=== PATIENT | female | born 1995 | race Caucasian/White ===

== ENCOUNTER → 2017-12-17 08:35 | Outpatient (CLI) | payer OTHER, SELFPAY ==
--- NOTE | 2017-12-17 08:38 | MR_ITS ---
MR ankle RT wo/w con Ordering Physician: Sade Galeana DPM Patient Age: 22 years: Female HISTORY: ITS.REASON: ankle pain Sprain ankle swelling about the entire ankle symptoms 3 weeks lateral ankle pain pain with abduction. TECHNIQUE: Pre and postcontrast imaging 1.5 to MR Multiplanar multisequence imaging precontrast Postcontrast imaging T1 fat suppression following 19 mL ProHance. Diffuse COMPARISON :Right ankle 11/26/2017 FINDINGS Suspect minimal focal tear ATFL , partial avulsion at its fibular attachment.Axial slice 10. This feature suggest likely grade 3 or near grade 3 ankle sprain . Also note thickened appearance of anterior talofibular fibular ligament imaging,reflecting recent injury and/or prior injury. Suggestion edema throughout insertion I believe of both the calcaneal fibular and anterior talofibular is ligamen on coronal image 21, 22 also reflecting this ankle sprain injury. . Postcontrast images show enhancement most pronounced throughout this region anterior to the tip of the lateral malleolus, in the region and in this region of the ATFL, calcaneofibular ligament & soft tissues anterior to the tip of the lateral malleolus The anterior inferior tibiofibular ligament appears intact as seen on axialslice 7although there may be some minor edema along its inferior aspect. Axial/7 Coronal slice 20. Possible minor sprain Posterior tibiofibular ligaments appear intact.. . Moderate Ankle joint effusion. Fluid and edema most evident at lateral. Moderate joint fluid extending extending posterior and surrounds the FHL.. . . Also note scant increased edema & fluid along the posterior as well as lateral aspect the subtalar joint.. . Minimal bone contusions evident.: Most notable is the bone contusion along the lateral the distal tibia interosseous region, & just above the ankle mortise,.. Axial image 5. Coronal slice 22. No definitive widening of the interosseous region. There is some minimal fluid tracking this region.. On slice 1. I believe intact interosseous ligament is identified Very subtle contusion beneath lateral dome of talus- just inferior to the area discussed above. Coronal image 21. No fracture line evident at either the above areas . Questionable small focus of bone contusion along medial neck of talus. Sagittal slice 15, coronal slice 17 axial 10.. Medial malleolus however is intact with no fracture or contusion. There is some edema throughout soft tissues of posterior to the medial malleolus q Peroneus tendons overall intact, with no definitive tear. There is some upper normal interstitial signal centrally within peroneus brevis tendon sagittal image 6, just below the tip of the lateral malleolus... However I cannot confirm this on axial images & thus may merely be magic angle artifact signal.. . Posterior tibialis tendon intact. No tear. There is scant fluid tracking along these above tendon sheaths. Metatarsals and specifically base of fifth metatarsal intact. IMPRESSION: 1. . Suspect tear, partial avulsion at the fibular insertion of ATFL ligament.... Of this ligament also appears to be thickened reflecting injury and/or prior injuries . 2.. Minimal Bone contusion the lung lateral aspect distal tibia, at interosseous region. No significant widening of the interosseous region felt to be present but there is scant fluid here . Posterior & Anterior talofibular ligament intact, with only question of possible minor sprain of the AiTFL Associated very subtle bone contusion at the lateral dome of talus,. Also question small bone contusion suspect at the medial neck of talus 3.Joint effusion.. 4. Soft tissue edema & swelling about ankle. Most evident about the tip of lateral malleolus postcon
== END ==
PROVIDERS: Family Provider Nurse Practitioner Family; PCP Nurse Practitioner Family; Visit Provider Podiatrist
DX: M25.571 Pain in right ankle and joints of right foot (principal); S93.401A Sprain of unspecified ligament of right ankle, initial encounter; S93.421A Sprain of deltoid ligament of right ankle, initial encounter; S93.431A Sprain of tibiofibular ligament of right ankle, initial encounter
CPT/HCPCS: 73723; A9576

== ENCOUNTER 2018-02-11 08:30 | Outpatient (RCR) | payer OTHER, SELFPAY ==
--- NOTE | 2018-01-23 09:39 | HMH.PTOPEV ---
PT Outpatient Evaluation Rehab PT Outpatient Evaluation Start: 01/23/18 09:27 Freq: Status: Active Protocol: Document 01/23/18 09:27 ARLEY (Rec: 01/23/18 09:38 ARLEY [id number]) Electronically Signed By Emmanuel Mercer, PT 01/23/18 09:27 Outpatient Therapy Subjective History Subjective History Pt is a 22 year old female presenting to outpatient PT with reports of R ankle pain S /P R inversion ankle sprain on 12/10/17 after a fall in which she stepped in a hole. Pt reports hx of R foot plantar fasciitis. Most recently had an injection for plantar fasciitis that has provided some significant relief. She was also referred for peroneal tendonitis. She presented to PT in R ankle corsett ankle brace. She reports wearing CAM walker while at work. No significant comorbidites to report. Chief Complaint Pain Stiff Swelling Gives out/Unstable Symptom Type Ache Dull Symptoms Relieved By Rest/Positioning Ice OTC Meds Symptoms Aggravated By Standing Physical Activity Walking Prior Functional Limitations None Current Functional Limitations Standing Squatting Recreation Activity Walking Stairs Balance Symptom Description Intermittent Level of pain today (0-10) 4 Pain scale - at its best (0-10) 0 Pain scale - at its worst (0-10) 6 Ankle/Foot Eval Gait Observation General Gait Pattern Observation Antalgic Gait Palpation Tenderness right Ankle/Foot Palpation Findings Tenderness Ankle/Foot Palpation Overall Comment Achilles tendon ATF TTP positive ROM Ankle/Foot Dorsiflexion w/Knee Extended -10 Active Range Motion (degrees) Ankle/Foot Dorsiflexion w/Knee Extended -5 Passive Range (degrees) Ankle/Foot Plantar Flexion Active Range 60 of Motion (degrees) Ankle/Foot Eversion Active Range of 25 Motion (degrees) An
== END 2018-02-11 08:35 | disposition home or self-care (01) ==
LOC: PT 08:30
PROVIDERS: Family Provider Nurse Practitioner Family; PCP Nurse Practitioner Family; Visit Provider Podiatrist
DX: S93.491D Sprain of other ligament of right ankle, subsequent encounter (principal); M72.2 Plantar fascial fibromatosis; M76.71 Peroneal tendinitis, right leg; M25.571 Pain in right ankle and joints of right foot; G89.29 Other chronic pain
CPT/HCPCS: 97110; 97112; 97163

== ENCOUNTER → 2018-02-26 17:47 | Outpatient (CLI) | payer OTHER, SELFPAY ==
[2018-02-26 18:53] LABS: Basophils % 0.4 % (0.1-2.0); Eosinophils # 0.1 K/mm3 (0.0-0.4); Eosinophils % 1.3 % (0.1-12.0); Hemoglobin 14.6 g/dL (12.2-16.2); Lymphocytes # 1.9 K/mm3 (0.7-4.5); Lymphocytes % 26.8 % (10-50); Mean Corpuscular HGB Conc 32.4 g/dL (31.8-35.4); Mean Corpuscular Hemoglobin 26.8 pg (27.0-31.2); Mean Corpuscular Volume 82.8 fl (81-99); Mean Platelet Volume 8.5 fl (7.4-10.4); Monocytes # 0.4 K/mm3 (0.1-1.0); Monocytes % 6.1 % (1.7-9.3); Neutrophils # 4.8 K/mm3 (1.8-7.8); Neutrophils % 65.4 % (37.0-80.0); Platelet Count 432 K/mm3 (142-424); Red Blood Count 5.43 M/mm3 (4.20-5.40); Red Cell Distribution Width 12.7 % (11.5-17.5); White Blood Count 7.3 K/mm3 (4.8-10.8)
[2018-02-26 19:45] LABS: Amphetamine/Metha Screen,Urine Negative ng/mL (<1000); Barbiturates Screen,Urine Negative ng/mL (<200); Benzodiazepines Screen,Urine Negative ng/mL (<200); Cannabinoid Screen,Urine Positive ng/mL (<50); Cocaine Screen,Urine Negative ng/mL (<300); Methadone Screen,Urine Negative ng/mL (<300); Opiate Screen,Urine Negative ng/mL (<300); Phencyclidine Screen,Urine Negative ng/mL (<25)
[2018-02-26 19:55] LABS: Alanine Aminotransferase 26 U/L (12-78); Albumin Level 4.1 gm/dL (3.4-5.0); Albumin/Globulin Ratio 1.1 (1.1-1.8); Alkaline Phosphatase 71 U/L (46-116); Anion Gap 16.1 mEq/L (5-15); Aspartate Amino Transferase 11 U/L (15-37); Bilirubin,Total 0.3 mg/dL (0.2-1.0); Blood Urea Nitrogen 12 mg/dL (7-18); Calcium 9.2 mg/dL (8.5-10.1); Carbon Dioxide 25 mmol/L (21.0-32.0); Chloride 103 mmol/L (98-107); Cholesterol 170 mg/dL (140-200); Creatinine,Serum 0.87 mg/dL (0.55-1.02); Estimated Glomerular Filt Rate 81 ml/min (>60); GFR (African American) 99 ML/MIN (>60); Globulin 3.6 gm/dl (1.3-3.2); Potassium 4.1 mmoL/L (3.5-5.1); Sodium 140 mmol/L (136-145); Thyroid Stimulating Hormone 1.34 uIU/ml (0.358-3.740); Total Protein,Serum 7.7 gm/dL (6.4-8.2); Triglycerides 50 mg/dL (30-200); VLDL Cholesterol 10 mg/dL (0-40)
[2018-02-26 20:48] LABS: Chol/HDL Ratio 3.5 (1-3.5); Glucose 105 mg/dL (74-106); HDL Cholesterol 49 mg/dL (29-89); LDL Cholesterol 111 mg/dL (0-130); T4 (Thyroxine) 9.7 ug/dl (4.7-13.3)
[2018-03-01 09:12] LABS: Vitamin D 25 Hydroxy 28.7 ng/mL (30.0-100.0)
== END ==
PROVIDERS: Visit Provider Nurse Practitioner Family
DX: E66.9 Obesity, unspecified (principal); Z68.35 Body mass index [BMI] 35.0-35.9, adult
CPT/HCPCS: 80053; 80061; 80305; 82652; 84436; 84443; 85025

== ENCOUNTER → 2021-09-22 07:13 | Outpatient (CLI) | payer OTHER, SELFPAY ==
[2021-09-21 17:38] LABS: Basophils # 0.1 K/mm3 (0-0.2); Basophils % 0.7 % (0.1-2.0); Eosinophils # 0.1 K/mm3 (0.0-0.4); Eosinophils % 1.3 % (0.1-12.0); Hematocrit 42.8 % (37.0-47.0); Hemoglobin 14.3 g/dL (12.2-16.2); Lymphocytes # 1.9 K/mm3 (0.7-4.5); Mean Corpuscular HGB Conc 33.4 g/dL (31.8-35.4); Mean Corpuscular Hemoglobin 27.2 pg (27.0-31.2); Mean Corpuscular Volume 81.4 fl (81-99); Mean Platelet Volume 9.6 fl (7.4-10.4); Monocytes # 0.5 K/mm3 (0.1-1.0); Monocytes % 7.3 % (1.7-9.3); Neutrophils # 4.5 K/mm3 (1.8-7.8); Neutrophils % 63.7 % (37.0-80.0); Platelet Count 508 K/mm3 (142-424); Red Blood Count 5.26 M/mm3 (4.20-5.40); Red Cell Distribution Width 13.9 % (11.5-17.5); White Blood Count 7.1 K/mm3 (4.8-10.8)
[2021-09-21 17:44] LABS: Alanine Aminotransferase 22 U/L (12-78); Albumin Level 4.2 g/dl (3.5-5.0); Albumin/Globulin Ratio 1.5 (1.1-1.8); Alkaline Phosphatase 76 U/L (38-126); Anion Gap 11.7 mEq/L (5-15); Aspartate Amino Transferase 26 U/L (14-36); Bilirubin,Total 0.5 mg/dl (0.2-1.3); Blood Urea Nitrogen 6 mg/dl (7-17); Calcium 9.4 mg/dl (8.4-10.2); Carbon Dioxide 24 mmol/L (22.0-30.0); Chloride 108 mmol/L (98-107); Chol/HDL Ratio 5.1 (1-3.5); Cholesterol 154 mg/dl (140-200); Estimated Glomerular Filt Rate 87 ml/min (>60); GFR (African American) 105 ML/MIN (>60); Globulin 2.8 g/dL (1.3-3.2); Glucose 106 mg/dl (74-100); HDL Cholesterol 30 mg/dl (40-60); Potassium 3.7 mmoL/L (3.5-5.1); Sodium 140 mmol/L (136-145); Triglycerides 96 mg/dl (30-150); VLDL Cholesterol 19 mg/dL (0-40)
[2021-09-21 17:55] LABS: Direct LDL Cholesterol 94.14 mg/dL (100-129)
[2021-09-21 18:00] LABS: 25-OH Vitamin D, Total 15.1 ng/mL (30-100)
[2021-09-21 18:15] LABS: Thyroid Stimulating Hormone 0.76 uIU/mL (0.465-4.68)
== END ==
PROVIDERS: PCP Physician Assistant; Visit Provider Physician Assistant
DX: Z00.00 Encounter for general adult medical examination without abnormal findings (principal); E55.9 Vitamin D deficiency, unspecified
CPT/HCPCS: 80053; 80061; 82306; 84443; 85025

== ENCOUNTER → 2021-10-06 09:30 | Outpatient (CLI) | payer OTHER, SELFPAY ==
--- NOTE | 2021-10-06 09:31 | MR_ITS ---
FINAL REPORT CLINICAL HISTORY: papilledema, right eye pain MIGRAINE HEADACHES INCREASE PRESSURE IN RIGHT EYE RIGHT EYE BLURINESS X 3 MONTHS FINDINGS: Multiplanar MR imaging of the brain was performed without contrast. There is no evidence of intracranial hemorrhage or mass. The ventricular size is normal. There is no evidence of shift of the midline structures. No abnormal extra-axial fluid collection is identified. The posterior fossa and brainstem have an unremarkable appearance. No area of abnormal restricted diffusion is identified. Normal major vessel vascular flow voids are seen. IMPRESSION: Unremarkable brain with no acute intracranial abnormality. Reviewed, Interpreted and Dictated by Fabian Cr III, MD Transcribed by Erich Johns Authenticated and . [facility]
== END ==
PROVIDERS: PCP Physician Assistant; Visit Provider Physician Assistant
DX: H47.10 Unspecified papilledema (principal)
CPT/HCPCS: 70551

== ENCOUNTER 2021-10-21 16:07 | Emergency (ER) | payer OTHER, SELFPAY ==
--- NOTE | 2021-10-21 16:10 | XR_ITS ---
FINAL REPORT CLINICAL HISTORY: fall, pain and swelling FINDINGS: RIGHT ANKLE Three views were obtained. There is no acute fracture or dislocation. The joint spaces appear normal. There is lateral soft tissue swelling. There is a plantar calcaneal spur. IMPRESSION: No acute process. Reviewed, Interpreted and Dictated by Fabian Cr III, MD Transcribed by Ely Chao Authenticated and [facility]
[2021-10-21 17:01] VITALS: BP 125/77; PULSE 89; RESP 17; TEMP 36.9; O2SAT 97; BMI 41.3
--- NOTE | 2021-10-21 17:25 | HMH.EDUTC ---
[facility] Disposition Clinical Impression: Ankle sprain Qualifiers: Encounter type: initial encounter Involved ligament of ankle: unspecified ligament Laterality: right Qualified Code(s): S93.401A - Sprain of unspecified ligament of right ankle, initial encounter Disposition: Home, Self-Care Condition on Discharge: Good Instructions: How to Use Crutches, Ankle Sprain, DI for Ankle Sprain, How To Perform RICE (Rest, Ice, Compress, Elevate) Additional Instructions: *weight bearing as tolerated *RICE, Rest the extremity, Ice 15-20 minutes 3-4 times daily, Compress- wear the woody wrap as discussed as much as possible to help reduce swelling and pain, Elevate the extremity when at rest *Woody wrap and crutches is for support and help control swelling, use it except in the shower. Be sure that is not to tight but not to loose either *Elevate when resting *Ibuprofen 600-800mg every 6-8 hours as needed for pain an inflammation. If need something more can take Tylenol in between doses of Ibuprofen to help Immediately follow up with your family doctor for new or worsening of symptoms, or no noticeable improvement over the next 3-5 days Follow up with your Family Doctor if no improvement or any worsening of symptoms Return if needed Straight to ER if any life threatening symptoms Referrals: Mayra North PA [Primary Care Provider] - As needed Forms: Work/School Release Time of Disposition: 17:35 Medical Decision Making - Jeremiah Inquiry Pt receiving controlled substance: No Jeremiah was queried for this patient: No Vital Signs: 10/21/21 17:01 Temperature 98.4 F Temperature Source Oral Pulse Rate [Left Radial] 89 Respiratory Rate 17 Blood Pressure [Right Arm] 125/77 Blood Pressure Mean [Right Arm] 93 Blood Pressure Source [Right Arm] Automatic Cuff Blood Pressure Position [Right Arm] Sitting 02 Sat by Pulse Oximetry 97 Oxygen Delivery Method Room Air - Radiology Data #1 Image(s): Ankle Image Reviewed: Yes I have reviewed radiologist's interpretation IMPRESSION: No acute process. [facility] HPI - General Stated complaint: AO 10/21@1500injured R Ankle Time Seen by Provider: 10/21/21 17:25 Mode of Arrival: Ambulatory Source of Information: Patient Limitations: No Limitations Description of Symptoms (Recalled from Triage Doc. by RN): right ankle pain after slipping on a rock today HEENT Symptoms (Recalled from RN notes): No Resp Symptoms (Recalled from RN notes): No Skin Symptoms (Recalled from RN notes): No MS Symptoms (Recalled from RN notes): Yes Functional Status (Recalled from RN notes): na - History of Present Illness Provider Complaint: Patient [place] on some rocks and slipped and rolled her right ankle State that ever since she has been having pain in her ankle when she tries to put weight on it or moves it certain ways - Related Data Previous Rx's Medication Instructions Recorded buspirone 5 mg tablet 5 mg PO BID #180 tab 09/21/21 ergocalciferol (vitamin D2) 1,250 1,250 mcg PO WEEKLY #14 cap 09/22/21 mcg (50,000 unit) capsule Allergies Allergy/AdvReac Type Severity Reaction Status Date / Time No Known Allergies Allergy Verified 09/21/21 14:22 - Worker's Comp Is this a Worker's Comp case?: No [facility] History - Hepatitis A Screen Attestation statement:: This patient has been screened for Hepatitis A risk factors. I have reviewed the patient's past medical history: Yes Medical History: Reports:: Anxiety, Depression, Migraine Denies:: Cancer, Diabetes Mellitus Type 1, Diabetes Mellitus Type 2, Hypertension, MRSA Other Surgeries: Yes: Appendectomy, Other Amputation: No Fractures: No - Social History Smoking Status: Never smoker Alcohol Intake: never Alcohol Intake Frequency:: other Substance Use Type: marijuana Occupational Status: employed - Psychiatric History Pschychiatric History:: Reports:: Anxiety, Depression Family Hx:: No
[2021-10-21 17:48] VITALS: BP 125/77; PULSE 89; RESP 17; TEMP 36.9; O2SAT 97
== END 2021-10-21 17:49 | disposition home or self-care (01) ==
PROVIDERS: Emergency Provider Nurse Practitioner; PCP Physician Assistant
DX: S93.401A Sprain of unspecified ligament of right ankle, initial encounter (principal); G43.909 Migraine, unspecified, not intractable, without status migrainosus; F32.A Depression, unspecified; F41.9 Anxiety disorder, unspecified; W01.0XXA Fall on same level from slipping, tripping and stumbling without subsequent striking against object, initial encounter
CPT/HCPCS: 73610; 99213; G0463

== ENCOUNTER 2021-10-25 12:14 | Outpatient (RCR) | payer OTHER, SELFPAY | END 2021-10-25 13:15 | disposition home or self-care (01) | LOC: PT 12:14 | PROVIDERS: Visit Provider Physician Assistant | DX: S93.401A Sprain of unspecified ligament of right ankle, initial encounter (principal) | CPT/HCPCS: 97760 ==

== ENCOUNTER → 2021-11-01 10:39 | Outpatient (CLI) | payer OTHER, SELFPAY ==
--- NOTE | 2021-11-01 10:44 | XR_ITS ---
FINAL REPORT CLINICAL HISTORY: pain, fall, pain and bruising,base of 4th and 5th toes COMPARISON: 11/26/2017 FINDINGS: RIGHT FOOT Three views of the right foot demonstrate no acute fracture or dislocation. The visualized joint spaces are normally aligned. There is a plantar calcaneal spur. The soft tissues are unremarkable. IMPRESSION: No acute bony abnormality. Reviewed, Interpreted and Dictated by Fabian Cr III, MD Transcribed by India Cardona Authenticated and [facility]
== END ==
LOC: RAD 10:40
PROVIDERS: PCP Physician Assistant; Visit Provider Podiatrist
DX: M25.571 Pain in right ankle and joints of right foot (principal)
CPT/HCPCS: 73630

== ENCOUNTER → 2021-11-03 13:56 | Outpatient (CLI) | payer OTHER, SELFPAY ==
--- NOTE | 2021-11-03 13:56 | MR_ITS ---
FINAL REPORT CLINICAL HISTORY: right ankle inversion injury - ? tear FINDINGS: Multiplanar MR imaging of the right ankle was performed without contrast. There is no fracture. There is bone bruising in the talus and sustentaculum. No osteochondral lesion is identified. The anterior talofibular ligament has an abnormal appearance consistent with a tear. There are partial tears of the calcaneofibular and deltoid ligaments. There is a partial tear of the anterior-inferior tibiofibular ligament. There is posterior tibial and peroneus longus tenosynovitis. The posterior plantar aponeurosis is intact. Small joint effusions are seen. The musculature is intact. There is no evidence of soft tissue mass or cyst. IMPRESSION: Bone bruising in the talus and sustentaculum without fracture. Tear of the anterior talofibular ligament. Partial tears of the calcaneofibular, deltoid and anterior-inferior tibiofibular ligaments. Peroneus longus and posterior tibial tenosynovitis. Reviewed, Interpreted and Dictated by Fabian Cr III, MD Transcribed by Erich Johns Authenticated and [facility]
== END ==
LOC: RAD 13:56
PROVIDERS: PCP Physician Assistant; Visit Provider Physician Assistant
DX: M25.571 Pain in right ankle and joints of right foot (principal)
CPT/HCPCS: 73721

== ENCOUNTER 2021-11-04 08:30 | Outpatient (RCR) | payer OTHER, SELFPAY ==
--- NOTE | 2021-10-28 14:39 | HMH.PTOPEV ---
PT Outpatient Evaluation Rehab PT Outpatient Evaluation Start: 10/28/21 13:53 Freq: Status: Active Protocol: Document 10/28/21 14:22 ARLEY (Rec: 10/28/21 14:37 ARLEY [id number]) Electronically Signed By Emmanuel Mercer, PT 10/28/21 14:22 Outpatient Therapy Subjective History Subjective History Patient is a 26 year old female presenting to outpatient PT with reports of acute R ankle pain S/P R inversion ankle sprain that occurred 1 week ago. Patient reports that she [place] resulting in sprain. Patient reports that she felt/heard a loud pop with the sprain. Most recent imaging - for any fracture. No other comorbidities to report. Chief Complaint Pain,Stiff,Swelling,Weakness Symptom Type Dull,Other Symptoms Relieved By Rest/Positioning,Ice,OTC Meds Prior Functional Limitations None Current Functional Limitations Housework,Standing,Recreation Activity,Walking,Stairs Symptom Description Intermittent Level of pain today (0-10) 2 Pain scale - at its best (0-10) 0 Pain scale - at its worst (0-10) 8 Ankle/Foot Eval Gait Observation General Gait Pattern Observation Antalgic Gait,Decrease Weight Bear (R) Palpation Tenderness right Ankle/Foot Palpation Findings Tenderness Ankle/Foot Palpation Overall Comment About medial malleolus, distal /lateral achilles, ATFL 3/4 ROM Ankle/Foot Dorsiflexion w/Knee Extended -17 Active Range Motion (degrees) Ankle/Foot Dorsiflexion w/Knee Extended -15 Passive Range (degrees) Ankle/Foot Plantar Flexion Active Range 56 of Motion (degrees) Ankle/Foot Plantar Flexion Passive Range WNL of Motion (degrees) Ankle/Foot Eversion Active Range of 9 Motion (degrees) Ankle/Foot Eversion Passive Range of 12 Motion (degrees) Ankle/Foot Inversion Active Range of 7 Motion (degrees) Ankle/Foot Inversion Passive Range of 19 Motion (degrees) Ankle/Foot ROM Limitations Soft Tissue Tightness,Pain Accessory Movements Ankle Accessory Movements that Elicit Tibial Dorsal [place],Tibial Symptoms Ventral [place] MMT right Ankle Dorsiflexion Strength Grade 4 Good Ankle Plantarflexion Strength Grade 4 Good Foot Eversion Strength Grade 4- Good- Foot Inversion Strength Grade 4- Good-
== END 2021-11-04 08:35 | disposition home or self-care (01) ==
LOC: PT 08:30
PROVIDERS: PCP Physician Assistant; Visit Provider Physician Assistant
DX: S93.401A Sprain of unspecified ligament of right ankle, initial encounter (principal)
CPT/HCPCS: 97010; 97014; 97110; 97140; 97163; G0283

== ENCOUNTER → 2021-11-14 12:11 | Outpatient (CLI) | payer OTHER, SELFPAY ==
--- NOTE | 2021-11-14 12:15 | ECG_ITS ---
APPROVED REPORT Exam: Resting ECG HR:84 bpm ECG Measurements Heart Rate 84 AXES IA 92 P -8 QRSd 89 QRS 62 QT 345 T 18 QTc 385 Conclusion SINUS RHYTHM WITH SINUS ARRHYTHMIA WITH SHORT IA INTERVAL BORDERLINE ECG UNCONFIRMED REPORT Electronically signed by : Kelvin Lyman MD 11/14/2021 14:18:48
[2021-11-14 12:59] LABS: Basophils # 0.2 K/mm3 (0-0.2); Basophils % 1.7 % (0.1-2.0); Eosinophils # 0.1 K/mm3 (0.0-0.4); Eosinophils % 1.1 % (0.1-12.0); Hematocrit 45.5 % (37.0-47.0); Hemoglobin 14.4 g/dL (12.2-16.2); Lymphocytes # 2.1 K/mm3 (0.7-4.5); Mean Corpuscular HGB Conc 31.7 g/dL (31.8-35.4); Mean Corpuscular Hemoglobin 26.7 pg (27.0-31.2); Mean Corpuscular Volume 84.2 fl (81-99); Mean Platelet Volume 8.7 fl (7.4-10.4); Monocytes # 0.5 K/mm3 (0.1-1.0); Monocytes % 5.9 % (1.7-9.3); Neutrophils # 5.8 K/mm3 (1.8-7.8); Neutrophils % 67.1 % (37.0-80.0); Platelet Count 474 K/mm3 (142-424); Red Cell Distribution Width 14.1 % (11.5-17.5); White Blood Count 8.6 K/mm3 (4.8-10.8)
[2021-11-14 13:13] LABS: Alanine Aminotransferase 30 U/L (12-78); Albumin Level 4.3 g/dl (3.5-5.0); Albumin/Globulin Ratio 1.5 (1.1-1.8); Alkaline Phosphatase 76 U/L (38-126); Anion Gap 12.1 mEq/L (5-15); Aspartate Amino Transferase 31 U/L (14-36); Bilirubin,Total 0.5 mg/dl (0.2-1.3); Blood Urea Nitrogen 8 mg/dl (7-17); Calcium 9.6 mg/dl (8.4-10.2); Carbon Dioxide 26 mmol/L (22.0-30.0); Chloride 108 mmol/L (98-107); Estimated Glomerular Filt Rate 87 ml/min (>60); GFR (African American) 105 ML/MIN (>60); Globulin 2.8 g/dL (1.3-3.2); Glucose 98 mg/dl (74-100); Potassium 4.1 mmoL/L (3.5-5.1); Sodium 142 mmol/L (136-145); Total Protein,Serum 7.1 g/dl (6.3-8.2)
== END ==
PROVIDERS: PCP Physician Assistant; Visit Provider Podiatrist
DX: Z01.818 Encounter for other preprocedural examination (principal); Z20.822 Contact with and (suspected) exposure to COVID-19
CPT/HCPCS: 36415; 80053; 85025; 93005; C9803; U0003; U0005

== ENCOUNTER 2021-11-16 08:19 | Day surgery (SDC) | payer OTHER, SELFPAY ==
[2021-11-15 09:11] VITALS: BMI 38.7
[2021-11-15 09:26] LABS: HCG Qualitative, Serum Negative (Negative)
[2021-11-16] VITALS (12 sets, daily range): BP systolic 90–142; BP diastolic 62–85; PULSE 65–89; RESP 12–18; TEMP 36.1–43; O2SAT 97–100
--- NOTE | 2021-11-16 08:59 | HMH.ANESCL ---
[facility] Anesthesia Checklist - Patient Identification Patient Identification: Arm Band - Structural Data Admitted From: Home Planned Operative Procedure/s: Right Ankle Stabilization, Synovectomy Consent for Planned Operative Procedure(s) Verified: Yes Verified Documents: Surgical Consent, History and Physical - NPO Status Verified Time NPO: 00:00 - Additional verifications Anesthesia Reactions: No Hx Blood Transfusions: No Blood Transfusion Reaction: No - Airway Assessment C-Spine Mobility Assessed: Yes (mp2) TMJ Mobility Assessed: Yes Dentition: Good Dentition - Neurological Assessment Level of Consciousness: Awake, Alert - Anesthesia Plan Anesthesia Risk discussed: Yes Anesthesia Plan: Verified ASA Class: II Anesthesia Type: General w/block (Popliteal/Saphenous. Risks/benefits explained, pt verbalized understanding) [facility] History I have reviewed the patient's past medical history: Yes Medical History: Reports:: Anxiety, Depression, Migraine Denies:: Cancer, Diabetes Mellitus Type 1, Diabetes Mellitus Type 2, Hypertension, Internal Pacemaker, MRSA, Seizures *Have you ever received a pneumonia vaccine?: No *Have you received a flu vaccine this season?: Yes Other Medical History: Denies: Blood Transfusion Reaction Anesthesia experience/problems:: nac Other Surgeries: Yes: Appendectomy, Other. No: Pacemaker Amputation: No Fractures: No - *Social History Last grade of school completed: High school graduate Smoking Status: Never smoker Alcohol Intake: never Alcohol Intake Frequency:: other Substance Use Type: marijuana *Occupational Status:: employed Housing: house Household Members: family *Travel in the last 8 weeks: None - Psychiatric History Pschychiatric History:: Reports:: Anxiety, Depression Family Hx:: No significant family history
--- NOTE | 2021-11-16 10:10 | HMH.OPNOTE ---
Date of procedure: 11/16/21 Pre-op Diagnosis:: Peroneal tendinitis, right leg Sprain of anterior talofibular ligament of right ankle Right foot, right ankle pain Edema of right ankle Right ankle instability Tenosynovitis of right ankle Syndesmotic disruption of right ankle Obesity, morbid, BMI 40.0-49.9 Post-op Diagnosis:: Same Procedure performed:: 1. Right syndesmosis repair/ORIF (38225) 2. Right peroneal tenosynovectomy (54868) 3. Right modified Brostrum, ankle ligament stabilization ([id number]) 4. Right deltoid ligament repair (17373) 5. Right ankle arthrotomy (06620) 6. Right posterior tibial tenosynovectomy 7. Stress imaging (43116) 8. Application of graft (51048) 9. 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 Most recently on 10/21/2021 she had an acute on chronic ankle sprain resulting in Aird/partial tears to the ATFL, CFL, deltoid and syndesmosis ligaments. Discussed conservative versus surgical treatment options. Patient has failed conservative care with no improvement to left ankle symptoms. The patient has tried immobilization, modification of shoe gear, strapping, inserts, ice, elevation, NSAIDs, immobilization and fracture boot, ankle bracing and home stretching/physical therapy. The patient understands if she decides to not proceed with surgery there is a chance the pain and tear could worsen. Given the instability she could have the ankle give out which could lead to fracture or fall. She also understands that if she does not want to proceed with surgery, she can continue the fracture boot or brace but there is increased risk of functional and mechanical instability given sprain history. My professional recommendation would be surgery since there has been no improvement with conservative care for over a year. After a long discussion with the patient in regards to the conservative versus surgical treatment for the tendon tear/deformity, the patient has elected to proceed with surgery because they have failed conservative treatment and continue to have pain and worsening symptoms affecting daily activities. The patient has been instructed on the planned procedure, all risk versus benefits of the procedure discussed. These include but are not limited to: bleeding, infection, nerve and blood vessel damage, need for further surgery, delay in healing of soft tissue or bone, tendon re-rupture, failure of bones to heal, non-union, mal-union, failure of the implant, prolonged pain and recovery, CRPS/RSD, DVT and anesthetic complications. No guarantees were given. All questions fully answered. The patient verbalized understanding. Pre-op testing: cbc, cmp, ekg, covid. DVT/PE risk: obesity, mother hx of DVT. Ok to take baby aspirin while immobilized. Operative findings:: Right ankle instability noted with positive anterior drawer and talar tilt. The deltoid has a partial tear. There was synovitis in the posterior tibial tendon but no obvious tear. The ATFL and CFL were torn and attenuated. Given the degree of attenuation, graft material used around the ATFL to help with the repair and prevent adhesions. Peroneal tendons were identified and evaluated inferior to the distal fibula, tenosynovitis noted with no longitudinal tear. Syndesmotic instability appreciated. After successful fixation and reduction negative talar tilt and anterior drawer noted. Operative note:: On this date and time patient was deemed an appropriate surgical candidate. Pre-op regional popliteal nerve block performed by anesthesia. With informed consent signed, the patient was taken to the operating theater. Patient positioned supine. General anesthesia induced. Tourniquet applied to right mid calf. IV antibioti
--- NOTE | 2021-11-16 11:39 | XR_ITS ---
FINAL REPORT CLINICAL HISTORY: C-ARM RIGHT ANKLE MODIFIED BRODSTRUM fluoro time: .36 FINDINGS: FLUORO TIME PROCEDURE: Fluoroscopy in the operating room, right ankle. FINDINGS: Fluoroscopy time was provided by the radiology department for the clinical service. One spot film was obtained. Fluoroscopy exposure time: 0:36 minute IMPRESSION: See above Reviewed, Interpreted and Dictated by Fabian Cr III, MD Transcribed by India Cardona Authenticated and . [facility]
--- NOTE | 2021-11-16 12:00 | XR_ITS ---
FINAL REPORT CLINICAL HISTORY: Post op ankle stab FINDINGS: RIGHT ANKLE: Three views of the right ankle were obtained. A cast obscures the detail. There is postoperative change of the distal tibia and fibula. There is no acute fracture or dislocation. The joint spaces and mortise are intact. There is a plantar calcaneal spur. There is no soft tissue abnormality. IMPRESSION: Postoperative change of the distal tibia and fibula. Reviewed, Interpreted and Dictated by Fabian Cr III, MD Transcribed by India Cardona Authenticated and [facility]
--- NOTE | 2021-11-16 12:26 | HMH.ANESI ---
[facility] Anesthesia Record Part I Intake, IV Amount: 1,500 Estimated blood loss (mL): 0 Urine output (mL): 0 Blood Pressure: 90/62 SaO2: 98 Pulse Rate: 77 Respiratory Rate: 12 Temperature: 97 F Patient is:: Awake, Stable Stable to PACU at:: 12:20
--- NOTE | 2021-11-16 12:44 | SUR.PHASEI ---
1235- radiology at bedside at this time to take xrays following procedure
--- NOTE | 2021-11-16 12:48 | SUR.PHASEI ---
1250- detailed report called to amita cabrera in post op at this time.
--- NOTE | 2021-11-16 14:38 | HMH.ANESII ---
[facility] Anesthesia Record Part II Discharge Time: 12:50 Destination: Surgical Day Care (OP Surgery) PACU nurse assessment reviewed?: Yes Patient Condition:: Good Anesthesia Complications:: None Swallowing reflex intact?: Yes Cyanosis?: No Blood Pressure: 125/66 Pulse Rate: 75 Temperature: 97.1 F Mental Status: Alert & Oriented Pain level:: 0 Nausea and/or vomitting:: None Intake, IV Amount: 0
== END 2021-11-16 13:30 | disposition home or self-care (01) ==
LOC: OR 08:20
PROVIDERS: PCP Physician Assistant; Visit Provider Podiatrist
PROC: (CPT 27698; principal; 2021-11-16 10:00)
DX: M24.471 Recurrent dislocation, right ankle (principal); S93.431A Sprain of tibiofibular ligament of right ankle, initial encounter; S93.491A Sprain of other ligament of right ankle, initial encounter
CPT/HCPCS: 27698; 27829; 28086; 73600; 73610; 76000; 84703; 96374; C1713; C1776; J2405; Q4211

== ENCOUNTER → 2021-12-12 12:36 | Outpatient (CLI) | payer OTHER, SELFPAY ==
--- NOTE | 2021-12-12 12:43 | XR_ITS ---
FINAL REPORT CLINICAL HISTORY: pain, on recovery from ankle surgery with recent fall 1 week ago while here for f/u with dr mcclellan COMPARISON: November 16, 2021 FINDINGS: RIGHT ANKLE Three views of the right ankle were obtained. There are postoperative changes in the distal tibia and fibula which appears stable. The joint spaces and mortise are intact. There is a plantar calcaneal spur. There is no soft tissue abnormality. IMPRESSION: Postoperative changes with no acute bony abnormality. Reviewed, Interpreted and Dictated by Fabian Cr III, MD Transcribed by India Cardona Authenticated and [facility]
--- NOTE | 2021-12-12 14:06 | CA_ITS ---
FINAL REPORT TECHNIQUE: Color Doppler, duplex Doppler and compression sonography of the right lower extremity venous system was performed. CLINICAL HISTORY: PAIN RT CALF,S/P RT ANKLE SURGERY 11/16/21 FINDINGS: Thrombus is noted in the right peroneal vein. The remaining veins of the right lower extremity are patent and compressible. IMPRESSION: Deep venous thrombosis in the right peroneal vein. These findings were communicated to DR NASH by the manufacturing technologist. Reviewed, Interpreted and Dictated by Fabian Cr III, MD Transcribed by Erich Johns Authenticated and [facility]
== END ==
PROVIDERS: PCP Physician Assistant; Visit Provider Podiatrist
DX: R60.0 Localized edema (principal); G89.18 Other acute postprocedural pain
CPT/HCPCS: 73610; 93971

== ENCOUNTER 2022-01-31 08:00 | Outpatient (RCR) | payer OTHER, SELFPAY ==
--- NOTE | 2021-12-30 10:49 | HMH.PTOPEV ---
PT Outpatient Evaluation Rehab PT Outpatient Evaluation Start: 12/30/21 09:50 Freq: Status: Active Protocol: Document 12/30/21 10:20 IDANIASELENA (Rec: 12/30/21 10:49 ARLEY [id number]) E-signed By Emmanuel Mercer, PT Outpatient Therapy Subjective History Subjective History Patient is a 26 year old female presenting to outpatient PT with reports of R post-surgical foot/ankle pain S/P ATFL, CFL, Deltoid ligament and peroneal tenosynovectomy. Patient previously received PT services with some improvement noted. Patient reports multiple previous ankle sprains. Most recent injury occurred while walking in a river and slipping on a rock . Surgical date is 11/16. Patient had a post- operative blood clot that has now been resolved with blood thinners and given some symptom improvement. Patient is currently PWB and progressing to FWB over the next 2 weeks. No other comorbidities to report. Chief Complaint Pain,Stiff,Weakness Symptom Type Ache Symptoms Relieved By Rest/Positioning,Ice,OTC Meds, Prescription Meds Symptoms Aggravated By Standing,Physical Activity, Walking Prior Functional Limitations None Current Functional Limitations Housework,Standing,Recreation Activity,Walking,Balance Symptom Description Intermittent Level of pain today (0-10) 0 Pain scale - at its best (0-10) 0 Pain scale - at its worst (0-10) 3 Ankle/Foot Eval Gait Observation General Gait Pattern Observation Antalgic Gait,Decrease Weight Bear (R) Assistive Device Ambulation Assistive Device Axillary Crutches Palpation Tenderness right Ankle/Foot Palpation Findings Tenderness Ankle/Foot Palpation Overall Comment Surgical incisions 2/4 ROM Ankle/Foot Dorsiflexion w/Knee Extended 1 Active Range Motion (degrees) Ankle/Foot Dorsiflexion w/Knee Extended 5 Passive Range (degrees) Ankle/Foot Plantar Flexion Active Range 51 of Motion (degrees) Ankle/Foot Plantar Flexion Passive Range 54 of Motion (degrees)
== END 2022-01-31 08:05 | disposition home or self-care (01) ==
LOC: PT 08:00
PROVIDERS: PCP Physician Assistant; Visit Provider Podiatrist
DX: S93.401A Sprain of unspecified ligament of right ankle, initial encounter (principal); Z98.890 Other specified postprocedural states
CPT/HCPCS: 97110; 97112; 97163

== ENCOUNTER → 2022-04-10 15:55 | Outpatient (CLI) | payer OTHER, SELFPAY ==
[2022-04-10 15:56] LABS: Basophils # 0.2 K/mm3 (0-0.2); Basophils % 2.1 % (0.1-2.0); Eosinophils # 0.2 K/mm3 (0.0-0.4); Eosinophils % 1.6 % (0.1-12.0); Hematocrit 43.6 % (37.0-47.0); Lymphocytes # 1.5 K/mm3 (0.7-4.5); Lymphocytes % 15.1 % (10-50); Mean Corpuscular HGB Conc 32.2 g/dL (31.8-35.4); Mean Corpuscular Hemoglobin 25.9 pg (27.0-31.2); Mean Corpuscular Volume 80.6 fl (81-99); Mean Platelet Volume 10.2 fl (7.4-10.4); Monocytes # 0.6 K/mm3 (0.1-1.0); Monocytes % 5.7 % (1.7-9.3); Neutrophils # 7.6 K/mm3 (1.8-7.8); Neutrophils % 75.5 % (37.0-80.0); Platelet Count 509 K/mm3 (142-424); Red Blood Count 5.41 M/mm3 (4.20-5.40); Red Cell Distribution Width 13.9 % (11.5-17.5); White Blood Count 10.1 K/mm3 (4.8-10.8)
[2022-04-10 16:28] LABS: Alanine Aminotransferase 19 U/L (12-78); Albumin Level 4.4 g/dl (3.5-5.0); Albumin/Globulin Ratio 1.6 (1.1-1.8); Alkaline Phosphatase 70 U/L (38-126); Anion Gap 13.2 mEq/L (5-15); Aspartate Amino Transferase 24 U/L (14-36); Bilirubin,Total 0.5 mg/dl (0.2-1.3); Blood Urea Nitrogen 12 mg/dl (7-17); Calcium 9.1 mg/dl (8.4-10.2); Carbon Dioxide 25 mmol/L (22.0-30.0); Chloride 107 mmol/L (98-107); Chol/HDL Ratio 4.9 (1-3.5); Cholesterol 171 mg/dl (140-200); Estimated Glomerular Filt Rate 87 ml/min (>60); GFR (African American) 105 ML/MIN (>60); Globulin 2.8 g/dL (1.3-3.2); Glucose 88 mg/dl (74-100); HDL Cholesterol 35 mg/dl (40-60); Potassium 4.2 mmoL/L (3.5-5.1); Sodium 141 mmol/L (136-145); Total Protein,Serum 7.2 g/dl (6.3-8.2); Triglycerides 49 mg/dl (30-150); VLDL Cholesterol 10 mg/dL (0-40)
[2022-04-10 16:40] LABS: Direct LDL Cholesterol 111.53 mg/dL (100-129)
[2022-04-10 16:46] LABS: 25-OH Vitamin D, Total 12.9 ng/mL (30-100)
[2022-04-10 16:59] LABS: Thyroid Stimulating Hormone 1.54 uIU/mL (0.465-4.68)
[2022-04-12 10:12] LABS: FSH 2.3 mIU/mL (.)
[2022-04-12 16:33] LABS: Peripheral Smear Review Scanned Result
[2022-04-14 17:24] LABS: Testosterone, Total, LC/MS 26 ng/dL (.)
[2022-04-14 22:04] LABS: Anti Mullerian Hormone (AMH) 4.64
== END ==
LOC: LAB.DROPOF 15:56
PROVIDERS: PCP Physician Assistant; Visit Provider Physician Assistant
DX: E28.2 Polycystic ovarian syndrome (principal); R79.89 Other specified abnormal findings of blood chemistry; E55.9 Vitamin D deficiency, unspecified; Z79.899 Other long term (current) drug therapy
CPT/HCPCS: 80053; 80061; 82306; 82397; 83001; 83498; 84403; 84443; 85025

== ENCOUNTER → 2022-04-13 13:03 | Outpatient (CLI) | payer OTHER, SELFPAY ==
[2022-04-13 14:48] LABS: Iron 54 ug/dL (37-170)
[2022-04-13 14:57] LABS: Total Iron Binding Capacity 424 ug/dL (265-497)
[2022-04-13 15:24] LABS: Ferritin 11.8 ng/ml (6.24-137)
== END ==
LOC: LAB 13:04
PROVIDERS: PCP Physician Assistant; Visit Provider Physician Assistant
DX: E61.1 Iron deficiency (principal)
CPT/HCPCS: 36415; 82728; 83540; 83550

== ENCOUNTER → 2022-04-21 13:50 | Outpatient (CLI) | payer OTHER, SELFPAY ==
--- NOTE | 2022-04-21 13:54 | US_ITS ---
FINAL REPORT CLINICAL HISTORY: PCOS FINDINGS: Transvaginal sonographic images of the uterus were obtained. The uterus is normal in size. The endometrial stripe is normal measuring 2 mm. Ovaries are normal in size without suspicious mass. There are numerous sub cm cysts in periphery of both ovaries which may be seen with PCOS. No free fluid is identified. IMPRESSION: Sonographic findings consistent with PCOS, otherwise unremarkable. Reviewed, Interpreted and Dictated by Susie Crow MD Transcribed by Ely Chao Authenticated and [facility]
== END ==
LOC: RAD 13:50
PROVIDERS: PCP Physician Assistant; Visit Provider Physician Assistant
DX: E28.2 Polycystic ovarian syndrome (principal)
CPT/HCPCS: 76830